=== PATIENT | male | born 1975 | race Caucasian/White ===

== ENCOUNTER 2025-08-19 19:54 | Emergency (ER) | payer OTHER, SELFPAY ==
[2025-08-19 20:15] VITALS: BP 136/82; PULSE 99; RESP 16; TEMP 37.1; O2SAT 97; BMI 37.3
--- NOTE | 2025-08-20 00:20 | ED_ITS ---
HPI - Animal Bite General Chief Complaint: Animal Bite Stated Complaint: Split lip Time Seen by Provider: 08/20/25 00:20 Source: patient Mode of arrival: Ambulatory History of Present Illness HPI narrative: Patient is a 49-year-old male no pertinent past medical history comes into the ED from home for evaluation of laceration to the upper lip, states that he was playing with his dog when it accidentally bit him. Dog is up-to-date on [employer], he also states that his tetanus is up-to-date. Denies any other injuries denies any other symptoms not on any blood thinners Related Data Home Medications ?Medication ?Instructions ?Recorded ?Confirmed OMEPRAZOLE 20 mg PO QDAY ##0 12/31/11 Previous Rx's ?Medication ?Instructions ?Recorded cyclobenzaprine 10 mg tablet 10 mg PO Q8HP PRN #20 tab s 12/19/16 amoxicillin 875 mg-potassium 1 tab PO BID 1 week #14 t abs 08/20/25 clavulanate 125 mg tablet Allergies Allergy/AdvReac Type Severity Reaction Status Date / Time No Known Drug Allergies Allergy Verified 08/19/25 20:15 Review of Systems Review of Systems Narrative: General: Denies fever, chills, weight loss HEENT: Denies headache, eye drainage, eye irritation, head trauma, sore throat, voice change Cardiovascular: Denies any chest pain, palpitations, tachycardia Respiratory: Denies any shortness of breath, cough, wheeze, stridor GI/: Denies any abdominal pain, nausea, vomiting, diarrhea, bright red blood per rectum, melanotic stools, urinary frequency, urinary retention, dysuria, hematuria MSK: Denies any joint pain, muscle pains, swelling Skin: Laceration to the upper lip Neuro: Denies any headache, lightheadedness, dizziness, fainting, weakness Psych: Denies SI/HI Patient History Social History Smoking Status: Current every day smoker Smoking Status: Current every day smoker Exam Narrative Exam Narrative: General: Cooperative, well-developed, not in acute distress HEENT: Normocephalic, atraumatic, PERRLA, normal sclera, eyelids normal, patient with a 2 cm laceration noted to the right upper lip, does cross the vermilion border. Otherwise no other deformities or injuries Neck: Active full range of motion, atraumatic Chest: Normal to inspection, negative crepitus, no overlying erythema ecchymosis Respiratory: Normal respiratory effort, not in acute respiratory distress, clear to auscultation bilaterally negative cough, wheeze, tachypnea, rhonchi, rales Cardiology: Regular rate rhythm negative gallop, murmur, rubs GI/: No tenderness to palpation, soft, non rigid, normal to inspection, exam deferred MSK: Full active range of motion in all 4 extremities, atraumatic, no tenderness to palpation of any bony prominences Skin: No rashes or lesions noted Neuro: Alert awake oriented x3, moves all 4 extremities spontaneously, cranial nerves intact, able to answer all questions appropriately follows commands appropriately Psych: Cooperative, negative suicidal or homicidal ideations Initial Vital Signs Initial Vital Signs: Vital Signs Temperature 98.8 F 08/19/25 20:15 Pulse Rate 99 H 08/19/25 20:15 Respiratory Rate 16 08/19/25 20:15 Blood Pressure 136/82 08/19/25 20:15 Pulse Oximetry 97 08/19/25 20:15 Oxygen Delivery Method Room Air 08/19/25 20:15 Procedures Laceration Repair Laceration 1: Time of procedure: 00:40 Site: lip Side (If applicable): right Size (cm): 2 Description: linear Depth: simple, single layer Local Anesthetic: lidocaine 1% Amount of anesthesia used (mL): 3 Pre-repair: wound explored, irrigated extensively, deep structures intact and cleansed with chlorhexadine Skin layer closed with: other (Ethilon) Skin layer suture size: 5-0 Number of sutures: 5 Technique: simple, interrupted Course Vital Signs Vital signs: Vital Signs - 8 hr 08/19/25 20:15 Temperature 98.8 F Pulse Rate 99 H Respiratory Rate 16 Blood Pressure 136/82 Pulse Oximetry 97 Oxygen Delivery Method Room Air MDM - Animal Bite MDM Narrative Medical decision making narrative: 49-year-old male without any significant past medical history comes into the ED from home for evaluation of laceration to his upper lip, this was sustained after playing with his dog dog is up-to-date on vaccines, Tdap up-to-date. Patient not on any blood thinners. Patient had a 2 cm laceration noted to the right side of his upper lip does cross the vermilion border, he had laceration repair with 5 sutures, 5 0 Ethilon. He will be started on prophylactic antibiotics given bite by dog. No additional imaging workup warranted at this time. He was given strict return precautions verbalized understanding and agrees to being discharged home with outpatient follow up Discharge Plan Departure Patient Disposition: Home Clinical Impression: Laceration of lip, Dog bite Instructions: DI for Laceration Repair, DI for Dog Bite Activity Restrictions/Additional Instructions: You have 5 sutures that need to be removed in a proximally 5-7 days Please read the discharge instructions sheet carefully and bring all papers to all doctor follow-up visits, as it may contain information that your doctor may want to see. Disease processes change and evolve, if your symptoms worsen or if you develop any new symptoms that are concerning to you please return for evaluation. Your evaluation today does not show any evidence of any life- threatening/serious illnesses requiring admission to the hospital or surgery. Please follow-up with your doctor for re-evaluation in approximately 1 day. Seek immediate medical attention for any worrisome symptoms. *If you do not have a primary care provider please contact the [facility] Resource line at [phone]. They will ask some questions about your medical history and help get you set up with a doctor in the community. Prescriptions: New amoxicillin-pot clavulanate 875-125 mg tablet 1 tab PO BID 7 Days Qty: 14 0RF No Action OMEPRAZOLE 20 mg PO QDAY Qty: 0 cyclobenzaprine 10 MG tablet 10 mg PO Q8HP PRNQty: 20 0RF Referrals: Asaf Hurd MD [Primary Care Provider, Internal Medicine] Stand Alone Forms: Patient Portal/API
[2025-08-20] MEDS: AMOXICILLIN/CLAV 875/125 MG 1 TAB PO (00:49)
[2025-08-20 00:55] VITALS: BP 121/76; PULSE 78; RESP 20; O2SAT 98
== END 2025-08-20 00:57 | disposition home or self-care (01) ==
PROVIDERS: Emergency Provider Student in an Organized Health Care Education/Training Program; PCP Internal Medicine
DX: S01.511A Laceration without foreign body of lip, initial encounter (principal); W54.0XXA Bitten by dog, initial encounter
CPT/HCPCS: 12011; 99283